=== PATIENT | male | born 2000 | race Caucasian/White ===

== ENCOUNTER 2024-11-01 21:18 | Emergency (ER) | payer OTHER ==
[2024-11-01 21:25] LABS: Glucose,Whole Blood 99 mg/dL (70-110)
[2024-11-01 22:33] LABS: Basophils # (A) 0.11 10*3/uL (0.00-0.10); Eosinophils # (A) 0.45 10*3/uL (0.04-0.35); Eosinophils % (A) 4.1 %; HCT 41.6 % (39.6-50.0); HGB 14.8 g/dL (13.0-17.0); Lymphocytes # (A) 2.25 10*3/uL (0.90-5.00); Lymphocytes % (A) 20.6 %; MCH 29.4 pg (27.0-32.0); MCHC 35.6 g/dL (32.0-37.0); MCV 82.5 fL (80.0-97.0); Mean Platelet Volume 9.9 fL (9.5-12.2); Monocytes # (A) 0.55 10*3/uL (0.20-1.00); Neutrophils # (A) 7.55 10*3/uL (1.80-7.70); Platelet Count 188 10*3/uL (140-440); RBC 5.04 10*6/uL (4.40-5.60); RDW 12.6 % (11.5-14.5); WBC 10.94 10*3/uL (4.50-10.00)
[2024-11-01 22:46] LABS: ALT 22 U/L (4-49); AST 31 U/L (17-59); African American GFR (CKD) >90 (>60 ml/min/1.73 sqM); Albumin 4.4 g/dL (3.5-5.0); Alkaline Phosphatase 76 U/L (38-126); Anion Gap 8 mmol/L; Blood Urea Nitrogen 21 mg/dL (9-20); Calcium 9.7 mg/dL (8.4-10.2); Carbon Dioxide 29 mmol/L (22-30); Chloride 102 mmol/L (98-107); Glucose 95 mg/dL (74-99); Non-African American GFR(CKD) >90 (>60 ml/min/1.73 sqM); Potassium 4.2 mmol/L (3.5-5.1); Sodium 139 mmol/L (137-145); Total Bilirubin 0.4 mg/dL (0.2-1.3)
--- NOTE | 2024-11-01 23:15 | ED ---
General Adult HPI - General Chief complaint: Recheck/Abnormal Lab/Rx Stated complaint: HypoGlycemia Time Seen by Provider: 11/01/24 22:05 Source: patient Mode of arrival: ambulatory Limitations: no limitations - History of Present Illness Initial comments: 24-year-old male presenting with chief complaint of low blood sugar. Patient was at home around 2 hours ago when he started to feel a bit dizzy nauseous and had some shaking in his extremities. He has no history of diabetes or hypoglycemia. He ate some food and checked his blood sugar using a family member's glucometer and noted that his blood sugar was low. He is feeling better at this time. He has since eaten. No fever, chills, URI-like symptoms, chest pain, difficulty breathing, abdominal pain, vomiting. - Related Data Allergies Allergy/AdvReac Type Severity Reaction Status Date / Time montelukast [From Singulair] AdvReac Unknown Verified 11/01/24 21:27 Review of Systems ROS Statement: Those systems with pertinent positive or pertinent negative responses have been documented in the HPI. ROS Other: All systems not noted in ROS Statement are negative. Past Medical History Past Medical History: No Reported History Past Surgical History: No Surgical Hx Reported Smoking Status: Never smoker Past Alcohol Use History: None Reported Past Drug Use History: None Reported General Exam Limitations: no limitations General appearance: alert, in no apparent distress Head exam: Present: atraumatic, normocephalic, normal inspection Eye exam: Present: normal appearance, EOMI Neck exam: Present: normal inspection. Absent: meningismus Respiratory exam: Present: normal lung sounds bilaterally. Absent: respiratory distress, wheezes, rales, rhonchi, stridor Cardiovascular Exam: Present: regular rate, normal rhythm, normal heart sounds. Absent: systolic murmur, diastolic murmur, rubs, gallop, clicks Extremities exam: Present: normal inspection, full ROM Neurological exam: Present: alert, oriented X3 Psychiatric exam: Present: normal affect, normal mood Skin exam: Present: warm, dry, normal color Course Vital Signs 11/01/24 11/01/24 21:21 23:30 Temperature 98.2 F 98.7 F Pulse Rate 69 71 Respiratory 17 18 Rate Blood Pressure 132/87 118/73 O2 Sat by Pulse 100 99 Oximetry Medical Decision Making - Medical Decision Making Was pt. sent in by a medical professional or institution (DARA Cantor, DOCUMENT CONTROL MANAGER, urgent care, hospital, or usp...) When possible be specific @ -No Did you speak to anyone other than the patient for history (EMS, parent, family, police, friend...)? What history was obtained from this source @ -No Did you review nursing and triage notes (agree or disagree)? Why? @ -I reviewed and agree with nursing and triage notes Were old charts reviewed (outside hosp., previous admission, EMS record, old EKG, old radiological studies, urgent care reports/EKG's, usp records)? Report findings @ -No old charts were reviewed Differential Diagnosis (chest pain, altered mental status, abdominal pain women, abdominal pain men, vaginal bleeding, weakness, fever, dyspnea, syncope, headache, dizziness, GI bleed, back pain, seizure, CVA, palpatations, mental health, musculoskeletal)? @ -Differential includes diabetes, poor oral intake, not an all-inclusive list EKG interpreted by me (3pts min.). @ -As above X-rays interpreted by me (1pt min.). @ -None done CT interpreted by me (1pt min.). @ -None done U/S interpreted by me (1pt. min.). @ -None done What testing was considered but not performed or refused? (CT, X-rays, U/S, labs)? Why? @ -None What meds were considered but not given or refused? Why? @ -None Did you discuss the management of the patient with other professionals (professionals i.e. DARA Cantor, DOCUMENT CONTROL MANAGER, lab, RT, psych nurse, social service director, medical or surgical instrument maker, teacher, corrections officer, case specialist)? Give summary @ -No Was smoking cessation discussed for >3mins.? @ -No Was critical care preformed (if so, how long)? @ -No Were there social determinants of health that impacted care today? How? (Homelessness, low income, unemployed, alcoholism, drug addiction, tra nsportation, low edu. Level, literacy, decrease access to med. care, half-way, rehab)? @ -No Was there de-escalation of care discussed even if they declined (Discuss DNR or withdrawal of care, Hospice)? DNR status @ -No What co-morbidities impacted this encounter? (DM, HTN, Smoking, COPD, CAD, Cancer, CVA, ARF, Chemo, Hep., AIDS, mental health diagnosis, sleep apnea, morbid obesity)? @ -None Was patient admitted / discharged? Hospital course, mention meds given and route, prescriptions, significant lab abnormalities, going to OR and other pertinent info. @ -24-year-old male presenting with chief complaint of low blood sugar. Patient was feeling dizzy, nauseous, and shaky and checked his blood sugar using a family member's glucometer and noted it was low. No history of diabetes. He feels well at this time and has no symptoms at this time. History and physical examination are conducted. Blood sugar is 99 upon arrival. No action required based off the patient's lab results. On reassessment he still feeling well showing no acute signs of distress. Educated on today's findings. Follow-up with PCP. Report back to ER with any new or worsening symptoms. Discussed return parameters and answered all questions. Patient conveyed verbal understanding and agreed to the plan. I discussed this case in detail with my attending Dr. Rodas Undiagnosed new problem with uncertain prognosis? @ -No Drug Therapy requiring intensive monitoring for toxicity (Heparin, Nitro, Insulin, Cardizem)? @ -No Were any procedures done? @ -No Diagnosis/symptom? @ -Hypoglycemia Acute, or Chronic, or Acute on Chronic? @ -Acute Uncomplicated (without systemic symptoms) or Complicated (systemic symptoms)? @ -complicated Side effects of treatment? @ -No Exacerbation, Progression, or Severe Exacerbation? @ -No Poses a threat to life or bodily function? How? (Chest pain, USA, DC, pneumonia, PE, COPD, DKA, ARF, appy, cholecystitis, CVA, Diverticulitis, Homicidal, Suicidal, threat to staff... and all critical care pts) @ -Low likelihood - Lab Data Result diagrams: 11/01/24 22:25 11/01/24 22:25 Lab Results 11/01/24 11/01/24 11/01/24 Range/Units 21:24 22:25 22: WBC 10.94 H (4.50-10.00) 10*3/uL RBC 5.04 (4.40-5.60) 10*6/uL Hgb 14.8 (13.0-17.0) g/dL Hct 41.6 (39.6-50.0) % MCV 82.5 (80.0-97.0) fL MCH 29.4 (27.0-32.0) pg MCHC 35.6 (32.0-37.0) g/dL Plt Count 188 (140-440) 10*3/uL MPV 9.9 (9.5-12.2) fL Immature Gran % (Auto) 0.3 % Neutrophils % 69.0 % Lymphocytes % 20.6 % Monocytes % 5.0 % Eosinophils % 4.1 % Basophils % 1.0 % Immature Gran # 0.03 (0.00-0.04) 10*3/uL Neutrophils # 7.55 (1.80-7.70) 10*3/uL Lymphocytes # 2.25 (0.90-5.00) 10*3/uL Monocytes # 0.55 (0.20-1.00) 10*3/uL Eosinophils # 0.45 H (0.04-0.35) 10*3/uL Basophils # 0.11 H (0.00-0.10) 10*3/uL Sodium 139 (137-145) mmol/L Potassium 4.2 (3.5-5.1) mmol/L Chloride 102 (98-107) mmol/L Carbon Dioxide 29 (22-30) mmol/L Anion Gap 8 mmol/L BUN 21 H (9-20) mg/dL Creatinine 0.78 (0.66-1.25) mg/dL Est GFR (CKD-EPI)AfAm >90 (>60 ml/min/1.73 sqM) Est GFR (CKD-EPI)NonAf >90 (>60 ml/min/1.73 sqM) Glucose 95 (74-99) mg/dL POC Glucose (mg/dL) 99 (70-110) mg/dL POC Glu Tank Filler ID [place] Calcium 9.7 (8.4-10.2) mg/dL Total Bilirubin 0.4 (0.2-1.3) mg/dL AST 31 (17-59) U/L ALT 22 (4-49) U/L Alkaline Phosphatase 76 (38-126) U/L Total Protein 7.0 (6.3-8.2) g/dL Albumin 4.4 (3.5-5.0) g/dL Disposition Clinical Impression: Hypoglycemia Disposition: HOME SELF-CARE Condition: Good Instructions (If sedation given, give patient instructions): Non-diabetic Hypoglycemia (ED) Additional Instructions: Follow-up with PCP. Report back to ER with any new or worsening symptoms. Is patient prescribed a controlled substance at d/c from ED?: No Referrals: Jim Garza MD [Primary Care Provider] - 1-2 days Time of Disposition: 23:15
[2024-11-01 23:32] VITALS: BP 118/73; PULSE 71; RESP 18; TEMP 98.7
== END 2024-11-01 23:32 | disposition home or self-care (01) ==
LOC: EC 21:18
DX: E16.2 Hypoglycemia, unspecified (principal); Z88.8 Allergy status to other drugs, medicaments and biological substances
CPT/HCPCS: 36415; 80053; 85025; 99284